=== PATIENT | female | born 1930 ===

== ENCOUNTER → 2017-06-24 | Outpatient (CLI) | payer MEDICARE, OTHER | END | disposition home or self-care (01) | LOC: MAMMO 14:46 | DX: Z12.31 Encounter for screening mammogram for malignant neoplasm of breast (principal); N60.01 Solitary cyst of right breast | CPT/HCPCS: 77067 ==

== ENCOUNTER 2018-01-19 11:29 | Inpatient (IN) | payer MEDICARE, OTHER ==
[~2018-01-19] VITALS: Ht 177.8 cm; Wt 90.7 kg
[2018-01-19 12:31] LABS: BASO # 0.1 x10^3/uL (0.0-0.2); BASO % 1 % (0-3); EOS # 0.6 x10^3/uL (0.0-0.7); EOS % 4 % (0-3); HEMATOCRIT 35.6 % (36.0-47.0); LYMPH # 2.1 x10^3/uL (1.0-4.8); LYMPH % 15 % (24-48); MEAN CORPUSCULAR HEMOGLOBIN 30 pg (25-35); MEAN CORPUSCULAR HGB CONC 34 g/dL (31-37); MEAN CORPUSCULAR VOLUME 88 fL (79-100); MONO % 7 % (0-9); NEUT # 10.7 x10^3uL (1.8-7.7); NEUT % 74 % (31-73); PLATELET COUNT 327 x10^3/uL (140-400); RED BLOOD COUNT 4.06 x10^6/uL (3.50-5.40); RED CELL DISTRIBUTION WIDTH 14.4 % (11.5-14.5); WHITE BLOOD COUNT 14.5 x10^3/uL (4.0-11.0)
[2018-01-19 12:32] LABS: BILIRUBIN,URINE NEGATIVE (NEG); CLARITY,URINE CLEAR; COLOR,URINE YELLOW; NITRITE,URINE NEGATIVE (NEG); PROTEIN,URINE NEGATIVE (NEG-TRACE); UROBILINOGEN,URINE 0.2 mg/dL (0.2 mg/dL)
[2018-01-19 12:41] LABS: CALCIUM 8.7 mg/dL (8.5-10.1); GFR 52.2; POTASSIUM 4.4 mmol/L (3.5-5.1)
[2018-01-19 12:42] LABS: BACTERIA,URINE FEW /HPF (0-FEW); RBC,URINE OCC /HPF (0-2); SQUAMOUS EPITHELIAL CELL,UR FEW /LPF
[2018-01-19 12:48] LABS: ALBUMIN 2.5 g/dL (3.4-5.0); ALBUMIN/GLOBULIN RATIO 0.6 (1.0-1.7); MAGNESIUM 1.7 mg/dL (1.8-2.4); PROTHROMBIN TIME PATIENT 12.7 SEC (11.7-14.0); TOTAL BILIRUBIN 0.3 mg/dL (0.2-1.0); TOTAL PROTEIN 6.6 g/dL (6.4-8.2)
[2018-01-19] MEDS ORDERED: MAGNESIUM SULFATE 2GM 50 ML IV ONE (13:30)
--- NOTE | 2018-01-19 13:31 | RAD ---
CT of the head without contrast, 01/19/2018: HISTORY: Slurred speech, altered mental status There is moderate cerebral atrophy. There are moderate patchy bilateral deep white matter lucencies compatible with chronic ischemic change. The ventricles are enlarged on a compensatory basis. There is no shift of the midline structures. There is no evidence of acute intracranial hemorrhage or mass effect. Bilateral basal ganglia calcifications are present. A small lucency along the lateral aspect of the left basal ganglia is compatible with an old infarct. There is moderate calcific plaquing of the distal internal carotid and vertebral arteries. IMPRESSION: 1. Chronic findings as described above. 2. No acute intracranial abnormality is detected. Electronically signed by: Tao Cuevas MD (01/19/2018 1:28 PM) [facility]
--- NOTE | 2018-01-19 13:41 | PHYS DOC ---
Past Medical History Past Medical History: Diabetes-Type II Past Surgical History: Hip Replacement, Other Additional Past Surgical Histo: HERNIA, LEFT HIP Alcohol Use: None Drug Use: None Adult General Chief Complaint Chief Complaint: SLURRED SPEECH HPI HPI Patient is a 87 year old female was brought here by EMS for evaluation of slurred speech, had trouble finding the right words to say that been going on for more than a week. Patient's family said they have trouble understanding what she was trying to say. Patient denies any headache, no cough, no fever, no chest pain, no abdominal pain. Patient had been constipated, the [place] [facility] staff had given her some laxative recently, today she started having large bowel movement. Patient can move all her extremity without a problem. She had no problem was speaking, no blurry vision. She is DNR, she is living at the [place] [facility]. Review of Systems Review of Systems Constitutional: Denies fever or chills [] Eyes: Denies change in visual acuity, redness, or eye pain [] HENT: Denies nasal congestion or sore throat [] Respiratory: Denies cough or shortness of breath [] Cardiovascular: No additional information not addressed in HPI [] GI: Denies abdominal pain, nausea, vomiting, bloody stools or diarrhea [] : Denies dysuria or hematuria [] Musculoskeletal: Denies back pain or joint pain [] Integument: Denies rash or skin lesions [] Neurologic: Denies headache, focal weakness or sensory changes . POSITIVE FOR SLURRED SPEECH, APHASIA. Endocrine: Denies polyuria or polydipsia [] All other systems were reviewed and found to be within normal limits, except as documented in this note. Current Medications Current Medications Current Medications Medications (Trade) Dose Ordered Sig/Johnny Start Time Stop Time Status Last Admin Dose Admin Magnesium Sulfate 50 ml @ 25 mls/hr 1X ONCE 01/19/18 13:30 01/19/18 15:29 DC 01/19/18 14:20 25 MLS/HR Ondansetron HCl (Zofran) 4 mg PRN Q8HRS PRN 01/19/18 15:00 01/20/18 14:59 Sodium Chloride 1,000 ml @ 100 mls/hr Q10H 01/19/18 14:54 01/20/18 14:53 Allergies Allergies Allergies Coded Allergies Type Severity Reaction Last Updated Verified Penicillins Allergy Intermediate HIVES 01/19/18 Yes Physical Exam Physical Exam Constitutional: Well developed, well nourished, no acute distress, non-toxic appearance. [] HENT: Normocephalic, atraumatic, bilateral external ears normal, oropharynx moist, no oral exudates, nose normal. [] Eyes: PERRLA, EOMI, conjunctiva normal, no discharge. [] Neck: Normal range of motion, no tenderness, supple, no stridor. [] Cardiovascular:Heart rate regular rhythm, no murmur [] Lungs & Thorax: Bilateral breath sounds clear to auscultation [] Abdomen: Bowel sounds normal, soft, no tenderness, no masses, no pulsatile masses. [] Skin: Warm, dry, rash on buttock area. Back: No tenderness, no CVA tenderness. [] Extremities: No tenderness, no cyanosis, no clubbing, ROM intact, no edema. [] Neurologic: Alert and oriented X 3, normal motor function, normal sensory function, no focal deficits noted. Patient has obvious expressive aphasia with mild slurred speech. Psychologic: Affect normal, judgement normal, mood normal. [] Current Patient Data Vital Signs Vital Signs Date Time Temp Pulse Resp B/P (MAP) Pulse Ox O2 Delivery O2 Flow Rate FiO2 01/19/18 14:30 80 22 132/63 (86) 94 Room Air 01/19/18 11:40 97.6 97.6 Lab Values Laboratory Tests Test 01/19/18 12:00 01/19/18 12:15 White Blood Count 14.5 x10^3/uL (4.0-11.0) H Red Blood Count 4.06 x10^6/uL (3.50-5.40) Hemoglobin 12.0 g/dL (12.0-15.5) Hematocrit 35.6 % (36.0-47.0) L Mean Corpuscular Volume 88 fL (79-100) Mean Corpuscular Hemoglobin 30 pg (25-35) Mean Corpuscular Hemoglobin Concent 34 g/dL (31-37) Red Cell Distribution Width 14.4 % (11.5-14.5) Platelet Count 327 x10^3/uL (140-400) Neutrophils (%) (Auto) 74 % (31-73) H Lymphocytes (%) (Auto) 15 % (24-48) L Monocytes (%) (Auto) 7 % (0-9) Eosinophils (%) (Auto) 4 % (0-3) H Basophils (%) (Auto) 1 % (0-3) Neutrophils # (Auto) 10.7 x10^3uL (1.8-7.7) H Lymphocytes # (Auto) 2.1 x10^3/uL (1.0-4.8) Monocytes # (Auto) 1.0 x10^3/uL (0.0-1.1) Eosinophils # (Auto) 0.6 x10^3/uL (0.0-0.7) Basophils # (Auto) 0.1 x10^3/uL (0.0-0.2) Prothrombin Time 12.7 SEC (11.7-14.0) Prothrombin Time INR 1.0 (0.8-1.1) PTT 26 SEC (24-38) Sodium Level 130 mmol/L (136-145) L Potassium Level 4.4 mmol/L (3.5-5.1) Chloride Level 93 mmol/L (98-107) L Carbon Dioxide Level 32 mmol/L (21-32) Anion Gap 5 (6-14) L Blood Urea Nitrogen 20 mg/dL (7-20) Creatinine 1.0 mg/dL (0.6-1.0) Estimated GFR (Cockcroft-Gault) 52.2 BUN/Creatinine Ratio 20 (6-20) Glucose Level 193 mg/dL (70-99) H Calcium Level 8.7 mg/dL (8.5-10.1) Magnesium Level 1.7 mg/dL (1.8-2.4) L Total Bilirubin 0.3 mg/dL (0.2-1.0) Aspartate Amino Transferase (AST) 17 U/L (15-37) Alanine Aminotransferase (ALT) 22 U/L (14-59) Alkaline Phosphatase 64 U/L (46-116) Troponin I Quantitative < 0.017 ng/mL (0.000-0.055) XZ-Qtf-M-Type Natriuretic Peptide 356 pg/mL (0-449) Total Protein 6.6 g/dL (6.4-8.2) Albumin 2.5 g/dL (3.4-5.0) L Albumin/Globulin Ratio 0.6 (1.0-1.7) L Urine Collection Type Unknown Urine Color Yellow Urine Clarity Clear Urine pH 7.0 Urine Specific [place] 1.015 Urine Protein Negative mg/dL (NEG-TRACE) Urine Glucose (UA) Negative mg/dL (NEG) Urine Ketones (Stick) Negative mg/dL (NEG) Urine Blood Negative (NEG) Urine Nitrite Negative (NEG) Urine Bilirubin Negative (NEG) Urine Urobilinogen Dipstick 0.2 mg/dL (0.2 mg/dL) Urine Leukocyte Esterase Negative (NEG) Urine RBC Occ /HPF (0-2) Urine WBC 1-4 /HPF (0-4) Urine Squamous Epithelial Cells Few /LPF Urine Bacteria Few /HPF (0-FEW) Laboratory Tests 01/19/18 12:00 Laboratory Tests 01/19/18 12:00 EKG EKG EKG AT 1421, RATE OF 82 BPM, NO STEMI, SINUS RHYTHM[] Radiology/Procedures Radiology/Procedures [][facility] [address] [place] [address] IMAGING REPORT Signed PATIENT: YARY CALDWELL ACCOUNT: [id number] : 1930 LOCATION: ER AGE: 87 SEX: F EXAM STATUS: REG ER ORD. PHYSICIAN: DEON BRWON DO REASON: AMS, SLURRED SPEECH FOR A WEEK PROCEDURE: CT HEAD WO CONTRAST CT of the head without contrast, 01/19/2018: HISTORY: Slurred speech, altered mental status There is moderate cerebral atrophy. There are moderate patchy bilateral deep white matter lucencies compatible with chronic ischemic change. The ventricles are enlarged on a compensatory basis. There is no shift of the midline structures. There is no evidence of acute intracranial hemorrhage or mass effect. Bilateral basal ganglia calcifications are present. A small lucency along the lateral aspect of the left basal ganglia is compatible with an old infarct. There is moderate calcific plaquing of the distal internal carotid and vertebral arteries. IMPRESSION: 1. Chronic findings as described above. 2. No acute intracranial abnormality is detected. Electronically signed by: Tao Cuevas MD (01/19/2018 1:28 PM) [facility] DICTATED and SIGNED BY: TAO CUEVAS MD DATE: 01/19/18 132 Impressions: EXPRESSIVE APHASIA, CONFUSION. Course & Med Decision Making Course & Med Decision Making Pertinent Labs and Imaging studies reviewed. (See chart for details) Discussed case with Dr. Ca, Neurologist, recommended to admit patient for MRI of her brain to rule out Stroke. Dragon Disclaimer Dragon Disclaimer This electronic medical record was generated, in whole or in part, using a voice recognition dictation system. Departure Departure Impression: Primary Impression: Expressive aphasia Disposition: ADMITTED INPATIENT Admitting Physician: Calli Jarvis Condition: STABLE Referrals: CALLI JARVIS MD (PCP) DEON BROWN DO Jan 19, 2018 13:41
--- NOTE | 2018-01-19 14:29 | EKG ---
[facility] [address] [place] [address] Test Date: 2018-01-19 Test Time: 14:18:12 Pat Name: YARY CALDWELL Department: Room: Gender: F [employer] Activities Director: : 1930 Requested By: DEON BROWN Order Number: [id number] Reading MD: Shivam Limon Measurements Intervals [place] Rate: 81 P: 36 SD: 202 QRS: -27 QRSD: 78 T: 13 QT: 372 QTc: 437 Interpretive Statements SINUS RHYTHM ATRIAL PREMATURE COMPLEX(ES) LEFTWARD AXIS CONSIDER LEFT VENTRICULAR HYPERTROPHY NON SPECIFIC T ABNORMALITY Electronically Signed On 01-19-2018 16:33:58 CDT by Shivam Limon
[2018-01-19] MEDS ORDERED: ONDANSETRON PF 4 MG/2 ML VIAL. IV PRN (15:00)
[2018-01-19] MEDS ORDERED: CITA10TA8 PO (16:07)
[2018-01-19] MEDS ORDERED: INSU100V13 SQ (16:07)
[2018-01-19] MEDS ORDERED: LISI-376 PO (16:07)
[2018-01-19] MEDS ORDERED: CARV6.252 PO (16:07)
[2018-01-19] MEDS ORDERED: FLUT9.9S NS (16:07)
[2018-01-19] MEDS ORDERED: MONT10TA6 PO (16:07)
[2018-01-19] MEDS ORDERED: INSU100C4 SQ (16:07)
[2018-01-19] MEDS ORDERED: CETI10TA16 PO (16:08)
[2018-01-19] MEDS ORDERED: SIMV10TA3 PO (16:10)
[2018-01-19] MEDS ORDERED: ASPI-630 PO (16:11)
[2018-01-19] MEDS ORDERED: MULT1TAB52 PO (16:12)
[2018-01-19] MEDS ORDERED: CINN500C2 PO (16:13)
[2018-01-19] MEDS ORDERED: FLAX10003 PO (16:14)
[2018-01-19] MEDS ORDERED: DICL100G18 TP (16:16)
[2018-01-19] MEDS ORDERED: B2/V1TAB PO (16:17)
--- NOTE | 2018-01-19 16:17 | RAD ---
EXAMINATION: Magnetic resonance imaging (MRI) of the brain and brainstem without contrast 01/19/2018 2:54 PM HISTORY: Expressive aphasia for one week. Confusion. TECHNIQUE: Multiplanar multi-weighted MRI of the brain and brainstem was performed without intravenous contrast using the general brain protocol. COMPARISON: CT head 01/19/2018 FINDINGS: The scalp and calvarium are normal. The superior sagittal sinus demonstrates normal venous flow. The corpus callosum is normal in shape and signal intensity. Mild cerebellar atrophy. There is a partially empty sella turcica, likely normal variant in the absence of elevated intracranial pressure. The brainstem and craniocervical junction are unremarkable. Diffusion weighted images reveal no hyperintensities to suggest acute cerebral infarction. The susceptibility weighted sequences reveal no evidence of acute or chronic hemorrhage. Ventricles, sulci and basal cisterns are prominent compatible with moderate to advanced generalized cerebral line loss. Confluent T2/FLAIR signal hyperintensity is identified in the periventricular subcortical white matter compatible with advanced chronic small vessel ischemic changes. There is a remote lacunar infarct in the right basal ganglia. Artifact is noted in the region of the right maxillary sinus. The visualized portions of the mastoids are unremarkable. The orbits appear normal the exception of bilateral lens replacement. Normal flow voids are demonstrated in the carotid arteries and basilar artery. IMPRESSION: 1. No evidence for acute or subacute ischemia. 2. Moderate to advanced generalized cerebral volume loss with advanced chronic small vessel ischemic changes in the roscoe, periventricular and subcortical white matter. 3. Mild cerebellar atrophy. 4. Remote lacunar infarcts are noted in the right basal ganglia. Electronically signed by: Ivon Vernon MD (01/19/2018 4:14 PM) [id number]
[2018-01-19] MEDS ORDERED: CHLO15MO2 PO (16:19)
[2018-01-19] MEDS ORDERED: TOLT4CAP PO (16:21)
[2018-01-19] MEDS ORDERED: ACET325T9 PO (16:27)
[2018-01-19] MEDS: IV NORMAL SALINE 1000ML BAG 1,000 ML IV SCH (18:21)
[2018-01-19 19:33] VITALS: BP 180/79
[2018-01-19 23:12] VITALS: BP 155/75
[2018-01-20] MEDS: IV NORMAL SALINE 1000ML BAG 1,000 ML IV SCH ×2 (00:54→10:54)
[2018-01-20 02:57] VITALS: BP 157/89
[2018-01-20 07:00] VITALS: BP 130/62
[2018-01-20 11:00] VITALS: BP 131/51
[2018-01-20 15:00] VITALS: BP 139/61
--- NOTE | 2018-01-20 16:43 | PDOC2 ---
NEUROLOGY CONSULT Date of Admission Date of Admission DATE: 01/20/18 TIME: 16:31 Reason for Consult Reason for Consult: IMPRESSION: Slurred speech and word finding difficulties for 1 week. Metabolic encephalopathy. Hyperglycemia. DM Generalized weakness. Cerebral volume loss. 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 Over weight. No evidence of acute CVA this time. RECOMMENDATIONS/PLAN: Brain MRI performed and no evidence of CVA this time. EEG Lab: see orders. Treat medical diseases. Control hyperglycemia. OT/PT. HISTORY OF THE PRESENT ILLNESS: This 87 -year-old female patient care home resident was brought by EMS to the ER of [facility] for evaluation of slurred speech, had trouble finding the right words to say that been going on for more than a week. Patient's family said they have trouble understanding what she was trying to say. Patient denies any headache, no cough, no fever, no chest pain, no abdominal pain. Patient can move all her extremities. She is DNR. PAST MEDICAL HISTORY: Please see above. PAST SURGERY HISTORY: Hip Replacement, HERNIA, LEFT HIP ALLERGY: Reviewed. MEDICATIONS: Refer to [facility] FAMILY HISTORY: H Non contributory. SOCIAL HISTORY: Lives in care home. Denies smoking, drinking, and illicit drug use. REVIEW OF SYSTEMS: Constitutional: No malnutrition, weight loss, cachexia. Head: No traumatic brain or head injury. Skin: No edema, or rash. Ear: No infection. Eyes: No vision loss or color blindness. Nose: No bleeding or purulent discharges. Hearing: Hearing decrease. Neck: No injury. Breast: No history of cancer, masses,or discharges. Cardiac: No SD, arrhythmia. Pulmonary: No COPD. GI: No GI ulcer, GI bleeding. Urinary/genital: UTI. Endocrinologic: Diabetes Mellitus. Skeletomuscular: Generalized weakness. Neurological: see HP. Psychiatric: Denies drug use/abuse. Otherwise, not -bidwu review of systems. PHYSICAL EXAMINATION: General appearance is in no acute distress. HEENT: Normocephalic and nontraumatic. Eyes, nose, ears, and throat are unremarkable. Neck is supple. No lymphadenopathy. No crepitus. Cardiovascular: S1, S2, regular rate and rhythm. Pulmonary: Clear to auscultation bilaterally. Abdomen: Bowel sounds are positive. Abdomen is soft, nontender, and nondistended. Extremities: No rash, lesions, or edema. No restriction of range of motion NEUROLOGICAL EXAMINATION: Awake. Not oriented to time, but knew place and person. PERRL. EOMI. CN: no focal findings. Muscle tone: within normal. Muscle strength: 4+ DTR: 1-2 Plantar reflex: Neutral response bilaterally Gait: not examined in bed. Sensory exam: no abnormal findings. No cerebellar signs elicited. F-T-N test fine. Current Medications Current Medications Current Medications Magnesium Sulfate 50 ml @ 25 mls/hr 1X ONCE IV Last administered on 01/19/18at 14:20; Start 01/19/18 at 13:30; Stop 01/19/18 at 15:29; Status DC Ondansetron HCl (Zofran) 4 mg PRN Q8HRS PRN IV NAUSEA/VOMITING; Start 01/19/18 at 15:00; Stop 01/20/18 at 14:59; Status DC Sodium Chloride 1,000 ml @ 100 mls/hr Q10H IV Last administered on 01/19/18at 18:21; Start 01/19/18 at 14:54; Stop 01/20/18 at 14:53; Status DC Active Scripts Active Reported Tylenol (Acetaminophen) 325 Mg Tablet 2 Tab PO PRN Q4HRS Detrol La (Tolterodine Tartrate) 4 Mg Cap.er.24h 1 Cap PO DAILY Peridex (Chlorhexidine Gluconate) 15 Ml Mouthwash 30 Ml PO BID Icaps Tablet (B2/Vit A,C & E/Lut/Zeaxanth/Mn) 1 Each Tablet.er 1 Each PO Voltaren (Diclofenac Sodium) 100 Gm Gel..gram. 2 Gm TP QID Flax Oil (Flaxseed Oil) 1,000 Mg Capsule 1,000 Mg PO Cinnamon (Cinnamon Bark) 500 Mg Capsule 500 Mg PO Multivitamins (Multivitamin) 1 Each Tablet 1 Tab PO DAILY Aspirin 81 Mg Tab.chew 1 Tab PO DAILY Simvastatin 10 Mg Tablet 1 Tab PO QHS Cetirizine Hcl 10 Mg Tablet 1 Tab PO DAILY Novolog (Insulin Aspart) 100 Unit/1 Ml Cartridge Unknown Dose SQ SLIDING SCALE Flonase Allergy Relief (Fluticasone Propionate) 9.9 Ml Orange.susp 2 Sprays NS DAILY Singulair Tablet (Montelukast Sodium) 10 Mg Tablet 1 Tab PO DAILY Zestril (Lisinopril) 5 Mg Tablet 2 Tab PO DAILY Celexa (Citalopram Hydrobromide) 10 Mg Tablet 3 Tab PO DAILY Levemir (Insulin Detemir) 100 Unit/1 Ml Vial 22 Unit SQ HS Carvedilol 6.25 Mg Tablet 6.25 Mg PO BIDWMEALS Allergies Allergies: Allergies Coded Allergies Type Severity Reaction Last Updated Verified Penicillins Allergy Intermediate HIVES 01/19/18 Yes ROS Review of System The patient denies any associated fevers, chills, headache, ear pain, rhinorrhea , sore throat, stiff neck, productive cough, chest pain, shortness of breath, back or flank pain, abdominal pain, nausea, vomiting, diarrhea, constipation, dysuria, rash, numbness, weakness, tingling, incontinence, difficulty ambulating, or diaphoresis. Physical Exam Physical Exam General: Well developed, well nourished, no acute distress, well appearing HEENT: Pupils equally round and reactive to light, EOMI, no discharge, normal conjunctiva Neck: Supple, no nuchal rigidity, no JVD, trachea midline, no tenderness Cardiac: RRR, no murmurs, no gallops, no rubs Chest/Lungs: CTAB, no wheeze, no rhonchi, no crackles Abdomen: soft, non-distended, no guarding, no peritoneal signs, non-tender Back: No tenderness Extremities: no edema, pulses intact, non-tender,capillary refill <3 sec bilateral upper and lower extremities, Neuro: Alert and oriented x 4, no focal deficits, normal speech Vitals Vitals: Vital Signs Date Time Temp Pulse Resp B/P (MAP) Pulse Ox O2 Delivery O2 Flow Rate FiO2 01/20/18 15:00 98.1 81 16 139/61 (87) 97 Room Air 98.1 Labs Labs Laboratory Tests Test 01/19/18 12:00 01/19/18 12:15 01/19/18 21:24 01/20/18 11:10 White Blood Count 14.5 x10^3/uL (4.0-11.0) Red Blood Count 4.06 x10^6/uL (3.50-5.40) Hemoglobin 12.0 g/dL (12.0-15.5) Hematocrit 35.6 % (36.0-47.0) Mean Corpuscular Volume 88 fL (79-100) Mean Corpuscular Hemoglobin 30 pg (25-35) Mean Corpuscular Hemoglobin Concent 34 g/dL (31-37) Red Cell Distribution Width 14.4 % (11.5-14.5) Platelet Count 327 x10^3/uL (140-400) Neutrophils (%) (Auto) 74 % (31-73) Lymphocytes (%) (Auto) 15 % (24-48) Monocytes (%) (Auto) 7 % (0-9) Eosinophils (%) (Auto) 4 % (0-3) Basophils (%) (Auto) 1 % (0-3) Neutrophils # (Auto) 10.7 x10^3uL (1.8-7.7) Lymphocytes # (Auto) 2.1 x10^3/uL (1.0-4.8) Monocytes # (Auto) 1.0 x10^3/uL (0.0-1.1) Eosinophils # (Auto) 0.6 x10^3/uL (0.0-0.7) Basophils # (Auto) 0.1 x10^3/uL (0.0-0.2) Prothrombin Time 12.7 SEC (11.7-14.0) Prothromb Time International Ratio 1.0 (0.8-1.1) Activated Partial Thromboplast Time 26 SEC (24-38) Sodium Level 130 mmol/L (136-145) Potassium Level 4.4 mmol/L (3.5-5.1) Chloride Level 93 mmol/L (98-107) Carbon Dioxide Level 32 mmol/L (21-32) Anion Gap 5 (6-14) Blood Urea Nitrogen 20 mg/dL (7-20) Creatinine 1.0 mg/dL (0.6-1.0) Estimated GFR (Cockcroft-Gault) 52.2 BUN/Creatinine Ratio 20 (6-20) Glucose Level 193 mg/dL (70-99) Calcium Level 8.7 mg/dL (8.5-10.1) Magnesium Level 1.7 mg/dL (1.8-2.4) Total Bilirubin 0.3 mg/dL (0.2-1.0) Aspartate Amino Transf (AST/SGOT) 17 U/L (15-37) Alanine Aminotransferase (ALT/SGPT) 22 U/L (14-59) Alkaline Phosphatase 64 U/L (46-116) Troponin I Quantitative < 0.017 ng/mL (0.000-0.055) UH-Yzw-U-Type Natriuretic Peptide 356 pg/mL (0-449) Total Protein 6.6 g/dL (6.4-8.2) Albumin 2.5 g/dL (3.4-5.0) Albumin/Globulin Ratio 0.6 (1.0-1.7) Urine Collection Type Unknown Urine Color Yellow Urine Clarity Clear Urine pH 7.0 Urine Specific [place] 1.015 Urine Protein Negative mg/dL (NEG-TRACE) Urine Glucose (UA) Negative mg/dL (NEG) Urine Ketones (Stick) Negative mg/dL (NEG) Urine Blood Negative (NEG) Urine Nitrite Negative (NEG) Urine Bilirubin Negative (NEG) Urine Urobilinogen Dipstick 0.2 mg/dL (0.2 mg/dL) Urine Leukocyte Esterase Negative (NEG) Urine RBC Occ /HPF (0-2) Urine WBC 1-4 /HPF (0-4) Urine Squamous Epithelial Cells Few /LPF Urine Bacteria Few /HPF (0-FEW) Glucose (Fingerstick) 139 mg/dL (70-99) Vitamin B12 Level 449 pg/mL (247-911) Thyroid Stimulating Hormone (TSH) 1.431 uIU/mL (0.358-3.74) Laboratory Tests Test 01/19/18 21:24 01/20/18 11:10 Glucose (Fingerstick) 139 mg/dL (70-99) Vitamin B12 Level 449 pg/mL (247-911) Thyroid Stimulating Hormone (TSH) 1.431 uIU/mL (0.358-3.74) VERONICA LEAL MD Jan 20, 2018 16:43
--- NOTE | 2018-01-20 18:09 | HP ---
ADMIT DATE: 01/19/2018 CHIEF COMPLAINT AND HISTORY OF PRESENT ILLNESS: This is an 87-year-old white female who is well known to me from followup at [facility]. The patient sent to the Emergency Room on the day of admission with slurred speech and word finding difficulties along with some increased confusion over the several days prior to admission. Family had noted the same with difficulties understanding them per history. The patient denied any major complaints on complete review of systems. PAST MEDICAL HISTORY: Remarkable for longstanding type 2 diabetes. PAST SURGICAL HISTORY: She has had a prior hernia repair as well as left hip replacement. MEDICATIONS: Brought with the patient, listed on the computer and have been addressed. ALLERGIES: SHE IS ALLERGIC TO PENICILLIN. SOCIAL HISTORY: She is , nonsmoker, nondrinker, does not use drugs. FAMILY HISTORY: Noncontributory. REVIEW OF SYSTEMS: Again, 12-point review of systems is essentially unremarkable. She does, however, realized that her speech at times is somewhat slurred and admits that that has been the case. PHYSICAL EXAMINATION: GENERAL: She is well-developed, well-nourished white female, in no acute distress. VITAL SIGNS: Stable. She is afebrile. HEAD, EYES, EARS, NOSE AND THROAT: Remarkable for glasses. NECK: Supple, without any thyromegaly. CHEST: Clear to auscultation and percussion. HEART: Regular rate and rhythm without S3, S4, or murmur. ABDOMEN: Soft, nontender, without hepatosplenomegaly or masses. EXTREMITIES: Without cyanosis, clubbing, edema. NEUROLOGIC: Nonfocal, although a couple of times in my interview, I would notice her having trouble finding her words, which is out of character for her. LABORATORY DATA: Initial CT of the head is unremarkable. Initial labs are noncontributory including urine, CBC and chem panel, although she did have an elevated white count of 14,500. IMPRESSION: 1. Speech difficulty suspicious for transient ischemic attack versus cerebrovascular accident type symptoms. 2. Diabetes. PLAN: The patient has been admitted. Neurology has been consulted. The patient will be monitored, managed and treated appropriately. CALLI AGUILAR MD DR: KEM/victor hugo JOB#: [id number] / [id number]
[2018-01-20 19:42] VITALS: BP 154/72
[2018-01-20 23:32] VITALS: BP 148/65
[2018-01-21] VITALS (8 sets, daily range): BP systolic 123–166; BP diastolic 45–81
[2018-01-21 11:31] LABS: CREATININE 0.9 mg/dL (0.6-1.0); MAGNESIUM 1.5 mg/dL (1.8-2.4)
--- NOTE | 2018-01-21 11:32 | PDOC2 ---
CONNIE GARCIA BAG END SEWER 01/21/18 1132: CARDIAC CONSULT DATE OF CONSULT Date of Consult DATE: 01/21/18 TIME: 11:17 REASON FOR CONSULT Reason for Consult: PAT REFERRING PHYSICIAN Referring Physician: Matheus SOURCE Source: Chart review, Patient HISTORY OF PRESENT ILLNESS HISTORY OF PRESENT ILLNESS This is an 87 yo female admitted for complains of word finding and slurred speech. She has been evaluated by neurology and presently not significant for any acute CVA per imaging. She has been having arrhythmia but has been noted with burst of PSVT prompting this consult. .Denies any CP, SOA and slurred speech is now absent. It is not clear if her BG was checked or what her BG was when she was having her symptoms. Denies any recent falls, no past seizures but she did have CVA in 2004. No known hx of CAD, arrhythmias. Denies any episodes of palpitations, recent syncope. Presently denies any pain, and has good recall with the events that has happened. She only uses walker to transfer otherwise she is WC bound. PAST MEDICAL HISTORY Cardiovascular: HTN, Hyperlipidemia CENTRAL NERVOUS SYSTEM: CVA GI: Constipation Psych: Anxiety Musculoskeletal: Osteoarthritis Infectious disease: No pertinent hx ENT: Allergic Rhinitis Renal/: Urinary Incontinence Endocrine: Diabetes (II with insulin therapy) Dermatology: Other (seborrheic dermatitis) PAST SURGICAL HISTORY Past Surgical History: Cataract Removal, Hernia Repair (stomach), Total hip replacement (left) FAMILY HISTORY Family History noncontributory to CV SOCIAL HISTORY Smoke: No ALCOHOL: none Lives: Correction ALLERGIES ALLERGIES: Coded Allergies: Penicillins (Verified Allergy, Intermediate, HIVES, 01/19/18) ROS Review of System 14 point ROS evaluated with pertinent positives noted per HPI PHYSICAL EXAM General: Alert, Oriented X3, Cooperative, No acute distress HEENT: Atraumatic, Mucous membr. moist/pink Lungs: Normal air movement, Other (basilar crackles) Heart: Regular rate (SR with PACs), Normal S1, Normal S2, Other (2/6 systolic murmur to LLS border) Abdomen: Soft, No tenderness Extremities: No cyanosis, No edema Skin: No breakdown, No significant lesion Neuro: Normal speech, Sensation intact Psych/Mental Status: Mental status NL, Mood NL MUSCULOSKELETAL: Osteoarthritic changes both hands VITALS VITALS Vital Signs Date Time Temp Pulse Resp B/P (MAP) Pulse Ox O2 Delivery O2 Flow Rate FiO2 01/21/18 07:34 97.9 78 20 149/69 (95) 96 Room Air 97.9 LABS Lab: Laboratory Tests Test 01/20/18 17:30 01/21/18 07:17 Glucose (Fingerstick) 154 mg/dL (70-99) 153 mg/dL (70-99) ASSESSMENT/PLAN ASSESSMENT/PLAN 1. Arrhythmia: Appears to be MAT/WAP with occasional PVCs in the setting of abn lytes. 2. Metabolic encephalopathy: with noted hyponatremia. unclear for associated hypoglycemia given her insulin therapy. 3. DM2: per PCP 4. HLP 5. HTN: controlled 6. Deconditioning: mainly WC bound. No frequent falls. 7. Hx of CVA: reported in 2004. 8. BPPV Recommendations 1. Replace Mg. Restart home coreg. DC lisinopril. NS was received. TTE today. 2. Check orthostatic readings. PCXR 3. Restart home statin and start on ECASA 81 mg MAHESH JETER MD 01/21/18 1336: CARDIAC CONSULT ASSESSMENT/PLAN ASSESSMENT/PLAN Pt. seen and examined. Agree with above GIRLS TENNIS COACH note. Supportive care from CV standpoint. Consider outpt event monitor. CONNIE GARCIA APRN Jan 21, 2018 11:32 MAHESH JETER MD Jan 21, 2018 13:36
--- NOTE | 2018-01-21 11:50 | EEG ---
DATE OF SERVICE: 01/21/2018 EEG NUMBER: [id number] OBJECTIVE: This is an 87-year-old female patient with history of mental status changes with prolonged mental status changes. EEG was requested to evaluate cerebral activity. METHODS: Twenty electrodes were applied according to the international 10-20 electrode placement system. EKG monitoring, hyperventilation, intermittent photic stimulation, monopolar and bipolar montages are routinely utilized. The record was obtained on a digital system with video monitoring. FINDINGS: 1. Background: The patient was recorded in the awake, drowsy, and sleep states. The overall background amplitude is 10-30 microvolts. A posterior dominant rhythm of 7-8 Hz is observed, but most time is in 8 Hz range. 2. Abnormalities: No specific epileptiform discharge or electrographic seizure is seen. No focal or diffuse slowing. 3. Activation: Hyperventilation was performed with fair efforts and normal response. Intermittent photic stimulation was performed with photic driving. IMPRESSION: This EEG is a borderline study for the awake, drowsy, and sleep states. No focal, lateralizing, specific epileptiform discharge or electrographic seizure is seen. VERONICA LEAL MD DR: EDMUND/victor hugo JOB#: [id number] / [id number] NOELLE
[2018-01-21 11:59] LABS: CHOLESTEROL/HDL RATIO 3.5
[2018-01-21] MEDS ORDERED: MAGNESIUM SULFATE 2GM 50 ML IV ONE (13:00)
--- NOTE | 2018-01-21 13:20 | RAD ---
EXAM: Chest, single view. HISTORY: Leukocytosis. COMPARISON: None. FINDINGS: A frontal view of the chest is obtained. There is suspected chronic diffuse increased interstitial opacity. There is no consolidation, pleural effusion or pneumothorax. The heart is normal in size. IMPRESSION: No acute pulmonary finding. Electronically signed by: Shiela Perez MD (01/21/2018 1:17 PM) [facility]
--- NOTE | 2018-01-21 13:58 | PN ---
DATE: 01/21/2018 LOCATION: Room 654. SUBJECTIVE: The patient is awake, alert, getting ready to eat breakfast, still is having some word-finding difficulty throughout the day yesterday. OBJECTIVE: VITAL SIGNS: Stable. She is afebrile. CHEST: Clear. HEART: Regular. ABDOMEN: Benign. LABORATORY DATA: Sugars have been good. B12 and TSH are normal. CT of the head and MRI did not show any acute changes. She has an EEG scheduled for today per Neurology. IMPRESSION: Intermittent aphasic speech errors of uncertain etiology at this point in time with Neurology following along. ADDITIONAL DIAGNOSIS: Diabetes. PLAN: Continue present care. We will follow Neurology's lead on further workup and plans to follow. CALLI AGUILAR MD DR: KEM/victor hugo JOB#: [id number] / [id number]
--- NOTE | 2018-01-21 15:58 | CARD ---
MR#: [id number] Date of Study: 01/21/2018 Ordering Physician: CONNIE GARCIA, Referring Physician: CALLI AGUILAR Tech: Joselyn Philippe KEVEN APPROVED REPORT EXAM: Two-dimensional and M-mode echocardiogram with Doppler and color Doppler. Other Information Quality : Good INDICATION Arrhythmia 2D DIMENSIONS RVDd2.5 (2.9-3.5cm)Left Atrium(2D)4.4 (1.6-4.0cm) IVSd1.3 (0.7-1.1cm)Aortic Root(2D)2.3 (2.0-3.7cm) LVDd4.3 (3.9-5.9cm)LVOT Diameter2.2 (1.8-2.4cm) PWd1.4 (0.7-1.1cm)LVDs2.4 (2.5-4.0cm) FS (%) 43.1 %SV60.8 ml LVEF(%)60.0 (>50%) Aortic Valve AoV Peak Kerwin.98.1cm/sAoV VTI19.0cm AO Peak GR.3.8mmHgLVOT VTI 16.70cm AO Mean GR.2mmHgAVA (VTI)3.19cm2 Mitral Valve MV E Qblmcpeo97.2cm/sMV DECEL PIAD182xk MV A Rwrjnimr272.0cm/sE/A Ratio0.6 TDI Lateral E' P. V6.24cm/sMedial E' P. V5.60cm/s E/Lateral E'10.9E/Medial E'12.2 Tricuspid Valve TR P. Twzonlkw175ei/sRAP WMOIWJPE4unUh TR Peak Gr.09rtYgTOLG68pvAn LEFT VENTRICLE The left ventricle is normal size. There is mild concentric left ventricular hypertrophy. The left ve ntricular systolic function is normal. The Ejection Fraction is 55-60%. There is normal LV segmental wall motion. Transmitral Doppler flow pattern is Grade I-abnormal relaxation pattern. RIGHT VENTRICLE The right ventricle is normal size. The right ventricular systolic function is normal. ATRIA The left atrium is mildly dilated. The right atrium size is normal. The interatrial septum is intact with no evidence for an atrial septal defect or patent foramen ovale as noted on 2-D or Doppler imagi ng. AORTIC VALVE The aortic valve is calcified but opens well. Doppler and Color Flow revealed no significant aortic r egurgitation. There is no significant aortic valvular stenosis. MITRAL VALVE The mitral valve is calcified but opens well. There is no evidence of mitral valve prolapse. There is no mitral valve stenosis. Doppler and Color-flow revealed trace to mild mitral regurgitation. TRICUSPID VALVE The tricuspid valve is normal in structure and function. Doppler and Color Flow revealed mild tricusp id regurgitation. There is mild pulmonary hypertension. The PA pressure was estimated at 32 mmHg. The re is no tricuspid valve stenosis. PULMONIC VALVE The pulmonic valve is not well visualized. Doppler and Color Flow revealed no pulmonic valvular regur gitation. There is no pulmonic valvular stenosis. GREAT VESSELS The aortic root is normal in size. The ascending aorta is normal in size. The IVC is normal in size a nd collapses >50% with inspiration. PERICARDIAL EFFUSION There is no evidence of significant pericardial effusion. Critical Notification Critical Value: No <Conclusion> The left ventricular systolic function is normal. The Ejection Fraction is 55-60%. There is normal LV segmental wall motion. Transmitral Doppler flow pattern is Grade I-abnormal relaxation pattern. Trace to mild mitral regurgitation. Mild tricuspid regurgitation. The PA pressure was estimated at 32 mmHg. There is no evidence of significant pericardial effusion. Signed by : Shivam Limon, Electronically Approved : 01/21/2018 15:57:23
[2018-01-21] MEDS ORDERED: CARVEDILOL 6.25 MG TABLET. PO SCH (17:00)
--- NOTE | 2018-01-21 17:34 | PDOC ---
PROGRESS NOTES Assessment Assessment Slurred speech and word finding difficulties for 1 week before admission. Metabolic encephalopathy. Hyperglycemia. DM Generalized weakness. Cerebral volume loss. 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 Over weight. No evidence of acute CVA this time. RECOMMENDATIONS/PLAN: Treat medical diseases. Control hyperglycemia. OT/PT. Brain MRI performed and no evidence of CVA this time. EEG: Borderline study. HISTORY OF THE PRESENT ILLNESS: This 87 -year-old female patient intermediate resident was brought by EMS to the ER of [facility] for evaluation of slurred speech, had trouble finding the right words to say that been going on for more than a week. Patient's family said they have trouble understanding what she was trying to say. Patient denies any headache, no cough, no fever, no chest pain, no abdominal pain. Patient can move all her extremities. She is DNR. PAST MEDICAL HISTORY: Please see above. PAST SURGERY HISTORY: Hip Replacement, HERNIA, LEFT HIP ALLERGY: Reviewed. MEDICATIONS: Refer to [facility] FAMILY HISTORY: H Non contributory. SOCIAL HISTORY: Lives in intermediate. Denies smoking, drinking, and illicit drug use. REVIEW OF SYSTEMS: Constitutional: No malnutrition, weight loss, cachexia. Head: No traumatic brain or head injury. Skin: No edema, or rash. Ear: No infection. Eyes: No vision loss or color blindness. Nose: No bleeding or purulent discharges. Hearing: Hearing decrease. Neck: No injury. Breast: No history of cancer, masses,or discharges. Cardiac: No WI, arrhythmia. Pulmonary: No COPD. GI: No GI ulcer, GI bleeding. Urinary/genital: UTI. Endocrinologic: Diabetes Mellitus. Skeletomuscular: Generalized weakness. Neurological: see HP. Psychiatric: Denies drug use/abuse. Otherwise, not [id number] review of systems. PHYSICAL EXAMINATION: General appearance is in no acute distress. HEENT: Normocephalic and nontraumatic. Eyes, nose, ears, and throat are unremarkable. Neck is supple. No lymphadenopathy. No crepitus. Cardiovascular: S1, S2, regular rate and rhythm. Pulmonary: Clear to auscultation bilaterally. Abdomen: Bowel sounds are positive. Abdomen is soft, nontender, and nondistended. Extremities: No rash, lesions, or edema. No restriction of range of motion Wounds in left back. NEUROLOGICAL EXAMINATION: Awake. Not fully oriented to time, but knew place and person. PERRL. EOMI. CN: no focal findings. Muscle tone: within normal. Muscle strength: 4+ DTR: 1-2 Plantar reflex: Neutral response bilaterally Gait: not examined in bed. Sensory exam: no abnormal findings. No cerebellar signs elicited. F-T-N test fine. Objective Objective Vital Signs Date Time Temp Pulse Resp B/P (MAP) Pulse Ox O2 Delivery O2 Flow Rate FiO2 01/21/18 15:53 80 136/59 (84) 01/21/18 15:43 97.9 20 95 Room Air 97.9 Intake and Output 01/21/18 07:00 Intake Total 720 ml Output Total 1700 ml Balance -980 ml Intake Oral 720 ml Output Urine Total 1700 ml Vitals Signs Vitals VS - Last 72 Hours, by Label Date Time Temp Pulse Resp B/P (MAP) Pulse Ox O2 Delivery O2 Flow Rate FiO2 01/21/18 15:53 80 136/59 (84) 01/21/18 15:52 77 161/68 (99) 01/21/18 15:43 97.9 77 20 127/62 (83) 95 Room Air 97.9 01/21/18 11:25 98.1 75 20 153/78 (103) 94 Room Air 98.1 01/21/18 08:00 Room Air 01/21/18 07:34 97.9 78 20 149/69 (95) 96 Room Air 97.9 01/21/18 03:46 98.1 84 16 166/81 (109) 94 Room Air 98.1 01/20/18 23:32 98.0 82 16 148/65 (92) 96 Room Air 98.0 01/20/18 20:00 Room Air 01/20/18 19:42 97.9 79 16 154/72 (99) 94 Room Air 97.9 01/20/18 15:00 98.1 81 16 139/61 (87) 97 Room Air 98.1 01/20/18 11:00 98.3 76 16 131/51 (77) 97 Room Air 98.3 01/20/18 08:13 Room Air 01/20/18 07:00 98.3 64 18 130/62 (84) 96 Room Air 98.3 Laboratory Laboratory Laboratory Tests Test 01/21/18 07:17 01/21/18 11:00 01/21/18 11:57 01/21/18 16:47 Glucose (Fingerstick) 153 mg/dL (70-99) 189 mg/dL (70-99) 176 mg/dL (70-99) Sodium Level 131 mmol/L (136-145) Potassium Level 4.0 mmol/L (3.5-5.1) Chloride Level 96 mmol/L (98-107) Carbon Dioxide Level 29 mmol/L (21-32) Anion Gap 6 (6-14) Blood Urea Nitrogen 12 mg/dL (7-20) Creatinine 0.9 mg/dL (0.6-1.0) Estimated GFR (Cockcroft-Gault) 59.0 Glucose Level 238 mg/dL (70-99) Calcium Level 8.0 mg/dL (8.5-10.1) Magnesium Level 1.5 mg/dL (1.8-2.4) Triglycerides Level 107 mg/dL (0-150) Cholesterol Level 158 mg/dL (0-200) LDL Cholesterol, Calculated 92 mg/dL (0-100) VLDL Cholesterol, Calculated 21 mg/dL (0-40) Non-HDL Cholesterol Calculated 113 mg/dL (0-129) HDL Cholesterol 45 mg/dL (40-60) Cholesterol/HDL Ratio 3.5 Medication Medications Current Medications Aspirin (Children'S Aspirin) 81 mg DAILYWBKFT PO ; Start 01/22/18 at 08:00 Carvedilol (Coreg) 6.25 mg BIDWMEALS PO ; Start 01/21/18 at 17:00 Carvedilol (Coreg) 6.25 mg BIDWMEALS PO ; Start 01/21/18 at 17:00; Status UNV Magnesium Sulfate 50 ml @ 25 mls/hr 1X ONCE IV Last administered on 01/21/18at 12:17; Start 01/21/18 at 13:00; Stop 01/21/18 at 14:59; Status DC Simvastatin (Zocor) 10 mg QHS PO ; Start 01/21/18 at 21:00 Comment Review of Relevant I have reviewed the following items tera (where applicable) has been applied. VERONICA LEAL MD Jan 21, 2018 17:34
[2018-01-21] MEDS: CARVEDILOL 6.25 MG TABLET. PO SCH (17:45)
[2018-01-21] MEDS: SIMVASTATIN 10 MG TABLET PO SCH (20:36)
[2018-01-22] VITALS (8 sets, daily range): BP systolic 110–141; BP diastolic 39–63
[2018-01-22] MEDS: ASPIRIN CHEWABLE 81 MG TABLET. PO SCH (09:08)
[2018-01-22] MEDS: CARVEDILOL 6.25 MG TABLET. PO SCH (09:08)
--- NOTE | 2018-01-22 10:23 | PN ---
DATE: 01/22/2018 LOCATION: Room 656. SUBJECTIVE: The patient is awake, alert, daughter is in attendance. She feels as well as her daughter that she had a much better day with her speech yesterday with seemingly almost resolution of the symptoms, although still occasional word finding errors. OBJECTIVE: VITAL SIGNS: Stable. She is afebrile. Lipid panel is unremarkable. Sodium yesterday remained somewhat low at 131, but not low enough to suggest this would be the reason for any symptoms. Sugars were decent. EEG per Neurology was borderline yesterday, which I cannot find a report of it to comment any further on it. CHEST: Clear. HEART: Regular. ABDOMEN: Benign. NEUROLOGIC: Nonfocal. Echo was planned by Neurology at this point in time. IMPRESSION: 1. Speech difficulty with word finding errors, probably transient ischemic attack related. 2. Diabetes. PLAN: We will let Neurology finish workup with any suggestions for treatment as an outpatient regarding the transient ischemic attack type symptoms with plans on discharge once this is accomplished. CALLI AGUILAR MD DR: KEM/victor hugo JOB#: [id number] / [id number]
[2018-01-22] MEDS ORDERED: ACETAMINOPHEN 325 MG TABLET. PO PRN (10:45)
[2018-01-22] MEDS: CETIRIZINE HCL 10 MG TABLET. PO SCH (11:30)
[2018-01-22] MEDS ORDERED: LISINOPRIL 10 MG TABLET PO SCH (11:30)
[2018-01-22 11:32] LABS: BASO % 0 % (0-3); EOS # 0.5 x10^3/uL (0.0-0.7); EOS % 5 % (0-3); HEMATOCRIT 36.9 % (36.0-47.0); HEMOGLOBIN 12.5 g/dL (12.0-15.5); LYMPH # 1.9 x10^3/uL (1.0-4.8); LYMPH % 22 % (24-48); MEAN CORPUSCULAR HEMOGLOBIN 30 pg (25-35); MEAN CORPUSCULAR HGB CONC 34 g/dL (31-37); MEAN CORPUSCULAR VOLUME 88 fL (79-100); MONO % 12 % (0-9); NEUT # 5.3 x10^3uL (1.8-7.7); NEUT % 61 % (31-73); PLATELET COUNT 271 x10^3/uL (140-400); RED BLOOD COUNT 4.17 x10^6/uL (3.50-5.40); RED CELL DISTRIBUTION WIDTH 14.5 % (11.5-14.5); WHITE BLOOD COUNT 8.7 x10^3/uL (4.0-11.0)
[2018-01-22 11:34] LABS: ALBUMIN 2.3 g/dL (3.4-5.0); ALBUMIN/GLOBULIN RATIO 0.6 (1.0-1.7); CREATININE 1.2 mg/dL (0.6-1.0); GFR 42.3; MAGNESIUM 1.8 mg/dL (1.8-2.4); POTASSIUM 4.1 mmol/L (3.5-5.1); TOTAL BILIRUBIN 0.4 mg/dL (0.2-1.0); TOTAL PROTEIN 5.9 g/dL (6.4-8.2)
--- NOTE | 2018-01-22 12:08 | PDOC ---
CONNIE GARCIA TEST AND TURN UP TECHNICIAN 01/22/18 1208: CARDIO Progress Notes Date and Time Date of Service 01/22/2018 Time of Evaluation 1130 Subjective Subjective: No Chest Pain, No shortness of breath, No Palpitations Vitals Vitals Vital Signs Date Time Temp Pulse Resp B/P (MAP) Pulse Ox O2 Delivery O2 Flow Rate FiO2 01/22/18 11:11 98.0 77 20 131/52 (78) 96 Room Air 98.0 Weight Weight [ ] Input and Output Intake and Output Intake and Output 01/22/18 07:00 Intake Total 700 ml Output Total 1300 ml Balance -600 ml Intake Oral 700 ml Output Urine Total 1300 ml Laboratory Labs Laboratory Tests Test 01/21/18 11:57 01/21/18 16:47 01/22/18 07:18 01/22/18 10:33 Glucose (Fingerstick) 189 mg/dL (70-99) 176 mg/dL (70-99) 171 mg/dL (70-99) White Blood Count 8.7 x10^3/uL (4.0-11.0) Red Blood Count 4.17 x10^6/uL (3.50-5.40) Hemoglobin 12.5 g/dL (12.0-15.5) Hematocrit 36.9 % (36.0-47.0) Mean Corpuscular Volume 88 fL (79-100) Mean Corpuscular Hemoglobin 30 pg (25-35) Mean Corpuscular Hemoglobin Concent 34 g/dL (31-37) Red Cell Distribution Width 14.5 % (11.5-14.5) Platelet Count 271 x10^3/uL (140-400) Neutrophils (%) (Auto) 61 % (31-73) Lymphocytes (%) (Auto) 22 % (24-48) Monocytes (%) (Auto) 12 % (0-9) Eosinophils (%) (Auto) 5 % (0-3) Basophils (%) (Auto) 0 % (0-3) Neutrophils # (Auto) 5.3 x10^3uL (1.8-7.7) Lymphocytes # (Auto) 1.9 x10^3/uL (1.0-4.8) Monocytes # (Auto) 1.0 x10^3/uL (0.0-1.1) Eosinophils # (Auto) 0.5 x10^3/uL (0.0-0.7) Basophils # (Auto) 0.0 x10^3/uL (0.0-0.2) Sodium Level 130 mmol/L (136-145) Potassium Level 4.1 mmol/L (3.5-5.1) Chloride Level 97 mmol/L (98-107) Carbon Dioxide Level 28 mmol/L (21-32) Anion Gap 5 (6-14) Blood Urea Nitrogen 14 mg/dL (7-20) Creatinine 1.2 mg/dL (0.6-1.0) Estimated GFR (Cockcroft-Gault) 42.3 BUN/Creatinine Ratio 12 (6-20) Glucose Level 236 mg/dL (70-99) Calcium Level 8.0 mg/dL (8.5-10.1) Magnesium Level 1.8 mg/dL (1.8-2.4) Total Bilirubin 0.4 mg/dL (0.2-1.0) Aspartate Amino Transf (AST/SGOT) 12 U/L (15-37) Alanine Aminotransferase (ALT/SGPT) 19 U/L (14-59) Alkaline Phosphatase 62 U/L (46-116) Total Protein 5.9 g/dL (6.4-8.2) Albumin 2.3 g/dL (3.4-5.0) Albumin/Globulin Ratio 0.6 (1.0-1.7) Test 01/22/18 11:32 Glucose (Fingerstick) 211 mg/dL (70-99) Physical Exam HEENT: Neck Supple W Full Motion Chest: Symmetric LUNGS: Other (diminished bases) Heart: RRR (SR with occasional burst of SVT) Abdomen: Soft N/T Extremities: No Calf Tenderness, Other (trace LE) Neurology: alert, oriented, follow commands Assessment Assessment 1. Arrhythmia: noted prior with MAT/WAP. Continues to have asymptomatic brief bursts of SVTs. EF/WM nml. No symptoms. 2. Metabolic encephalopathy: resolved 3. DM2: per PCP 4. HLP 5. HTN: controlled. negative for orthostasis. 6. Deconditioning: mainly WC bound. No frequent falls. 7. Hx of CVA: reported in 2004. 8. BPPV 9. Hyponatremia: Na 130. Defer to PCP Recommendations 1. Has not received any ACEi but her BP has been controlled. Would prefer to continue to hole given her low Na 2. Will DC coreg and place on metoprolol for better rhythm control. 2. Continue statin and ASA 3. Outpt event monitor is a consideration but this would not be possible as pt resides in [facility]. 4. Follow up in office in 4 weeks. MAHESH JETER MD 01/22/18 1639: CARDIO Progress Notes Plan Plan Pt. seen and examined. Agree with above SHOWROOM CONSULTANT note. No new issues on tele. Supportive care. Echo WNL CONNIE GARCIA TEST AND TURN UP TECHNICIAN Jan 22, 2018 12:08 MAHESH JETER MD Jan 22, 2018 16:39
[2018-01-22] MEDS: CITALOPRAM 10 MG TABLET. PO SCH (13:16)
[2018-01-22] MEDS: MULTIVITAMIN with MINERAL TABLET. PO SCH (13:16)
[2018-01-22] MEDS: FLUTICASONE 50MCG/NASAL SPRAY 16GM BOTTLE. NS SCH (13:17)
[2018-01-22] MEDS: DICLOFENAC SODIUM 1% TOPICAL GEL 100GM TUBE. TP SCH ×3 (13:18→20:41)
[2018-01-22] MEDS: OXYBUTYNIN CHLORIDE 5 MG TABLET PO SCH ×2 (14:55→20:40)
--- NOTE | 2018-01-22 15:40 | PDOC ---
PROGRESS NOTES Assessment Assessment Slurred speech and word finding difficulties for 1 week before admission. Metabolic encephalopathy. Hyperglycemia. DM Generalized weakness. Cerebral volume loss. 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 Over weight. No evidence of acute CVA this time. RECOMMENDATIONS/PLAN: Treat medical diseases. Control hyperglycemia. OT/PT. Discussed with her daughter and son-in-law at bedside on 01/22/18. Brain MRI performed and no evidence of CVA this time. EEG: Borderline study. HISTORY OF THE PRESENT ILLNESS: This 87 -year-old female patient prison resident was brought by EMS to the ER of [facility] for evaluation of slurred speech, had trouble finding the right words to say that been going on for more than a week. Patient's family said they have trouble understanding what she was trying to say. Patient denies any headache, no cough, no fever, no chest pain, no abdominal pain. Patient can move all her extremities. She is DNR. PAST MEDICAL HISTORY: Please see above. PAST SURGERY HISTORY: Hip Replacement, HERNIA, LEFT HIP ALLERGY: Reviewed. MEDICATIONS: Refer to [facility] FAMILY HISTORY: H Non contributory. SOCIAL HISTORY: Lives in prison. Denies smoking, drinking, and illicit drug use. REVIEW OF SYSTEMS: Constitutional: No malnutrition, weight loss, cachexia. Head: No traumatic brain or head injury. Skin: No edema, or rash. Ear: No infection. Eyes: No vision loss or color blindness. Nose: No bleeding or purulent discharges. Hearing: Hearing decrease. Neck: No injury. Breast: No history of cancer, masses,or discharges. Cardiac: No [place], arrhythmia. Pulmonary: No COPD. GI: No GI ulcer, GI bleeding. Urinary/genital: UTI. Endocrinologic: Diabetes Mellitus. Skeletomuscular: Generalized weakness. Neurological: see HP. Psychiatric: Denies drug use/abuse. Otherwise, not [id number] review of systems. PHYSICAL EXAMINATION: General appearance is in no acute distress. HEENT: Normocephalic and nontraumatic. Eyes, nose, ears, and throat are unremarkable. Neck is supple. No lymphadenopathy. No crepitus. Cardiovascular: S1, S2, regular rate and rhythm. Pulmonary: Clear to auscultation bilaterally. Abdomen: Bowel sounds are positive. Abdomen is soft, nontender, and nondistended. Extremities: No rash, lesions, or edema. No restriction of range of motion Wounds in left back. NEUROLOGICAL EXAMINATION: Awake. Not fully oriented to time, but knew place and person. PERRL. EOMI. CN: no focal findings. Muscle tone: within normal. Muscle strength: 4+ DTR: 1-2 Plantar reflex: Neutral response bilaterally Gait: not examined in bed. Sensory exam: no abnormal findings. No cerebellar signs elicited. F-T-N test fine. Objective Objective Vital Signs Date Time Temp Pulse Resp B/P (MAP) Pulse Ox O2 Delivery O2 Flow Rate FiO2 01/22/18 15:06 98.1 69 20 141/55 (83) 93 Room Air 98.1 Intake and Output 01/22/18 07:00 Intake Total 700 ml Output Total 1300 ml Balance -600 ml Intake Oral 700 ml Output Urine Total 1300 ml Vitals Signs Vitals VS - Last 72 Hours, by Label Date Time Temp Pulse Resp B/P (MAP) Pulse Ox O2 Delivery O2 Flow Rate FiO2 01/22/18 15:06 98.1 69 20 141/55 (83) 93 Room Air 98.1 01/22/18 12:06 70 130/63 (85) 01/22/18 12:05 67 125/49 (74) 01/22/18 11:11 98.0 77 20 131/52 (78) 96 Room Air 98.0 01/22/18 09:08 74 110/50 01/22/18 08:00 Room Air 01/22/18 07:39 98.0 74 20 110/50 (70) 93 Room Air 98.0 01/22/18 03:38 97.9 79 16 115/61 (79) 93 Room Air 97.9 01/21/18 23:23 97.9 83 16 123/45 (71) 95 Room Air 97.9 01/21/18 20:15 Room Air 01/21/18 19:58 98.2 77 16 135/48 (77) 91 Room Air 98.2 01/21/18 17:45 80 136/59 01/21/18 15:53 80 136/59 (84) 01/21/18 15:52 77 161/68 (99) 01/21/18 15:43 97.9 77 20 127/62 (83) 95 Room Air 97.9 01/21/18 11:25 98.1 75 20 153/78 (103) 94 Room Air 98.1 01/21/18 08:00 Room Air 01/21/18 07:34 97.9 78 20 149/69 (95) 96 Room Air 97.9 Laboratory Laboratory Laboratory Tests Test 01/21/18 16:47 01/22/18 07:18 01/22/18 10:33 01/22/18 11:32 Glucose (Fingerstick) 176 mg/dL (70-99) 171 mg/dL (70-99) 211 mg/dL (70-99) White Blood Count 8.7 x10^3/uL (4.0-11.0) Red Blood Count 4.17 x10^6/uL (3.50-5.40) Hemoglobin 12.5 g/dL (12.0-15.5) Hematocrit 36.9 % (36.0-47.0) Mean Corpuscular Volume 88 fL (79-100) Mean Corpuscular Hemoglobin 30 pg (25-35) Mean Corpuscular Hemoglobin Concent 34 g/dL (31-37) Red Cell Distribution Width 14.5 % (11.5-14.5) Platelet Count 271 x10^3/uL (140-400) Neutrophils (%) (Auto) 61 % (31-73) Lymphocytes (%) (Auto) 22 % (24-48) Monocytes (%) (Auto) 12 % (0-9) Eosinophils (%) (Auto) 5 % (0-3) Basophils (%) (Auto) 0 % (0-3) Neutrophils # (Auto) 5.3 x10^3uL (1.8-7.7) Lymphocytes # (Auto) 1.9 x10^3/uL (1.0-4.8) Monocytes # (Auto) 1.0 x10^3/uL (0.0-1.1) Eosinophils # (Auto) 0.5 x10^3/uL (0.0-0.7) Basophils # (Auto) 0.0 x10^3/uL (0.0-0.2) Sodium Level 130 mmol/L (136-145) Potassium Level 4.1 mmol/L (3.5-5.1) Chloride Level 97 mmol/L (98-107) Carbon Dioxide Level 28 mmol/L (21-32) Anion Gap 5 (6-14) Blood Urea Nitrogen 14 mg/dL (7-20) Creatinine 1.2 mg/dL (0.6-1.0) Estimated GFR (Cockcroft-Gault) 42.3 BUN/Creatinine Ratio 12 (6-20) Glucose Level 236 mg/dL (70-99) Calcium Level 8.0 mg/dL (8.5-10.1) Magnesium Level 1.8 mg/dL (1.8-2.4) Total Bilirubin 0.4 mg/dL (0.2-1.0) Aspartate Amino Transf (AST/SGOT) 12 U/L (15-37) Alanine Aminotransferase (ALT/SGPT) 19 U/L (14-59) Alkaline Phosphatase 62 U/L (46-116) Total Protein 5.9 g/dL (6.4-8.2) Albumin 2.3 g/dL (3.4-5.0) Albumin/Globulin Ratio 0.6 (1.0-1.7) Medication Medications Current Medications Acetaminophen (Tylenol) 650 mg PRN Q4HRS PRN PO MILD PAIN / TEMP; Start at 10:45 Aspirin (Children'S Aspirin) 81 mg DAILYWBKFT PO Last administered on at 09:08; Start 01/22/18 at 08:00 Carvedilol (Coreg) 6.25 mg BIDWMEALS PO Last administered on 01/22/18at 09:08; Start 01/21/18 at 17:00; Stop 01/22/18 at 12:10; Status DC Carvedilol (Coreg) 6.25 mg BIDWMEALS PO ; Start 01/21/18 at 17:00; Status UNV Cetirizine HCl (ZyrTEC) 10 mg DAILY PO Last administered on 01/22/18at 11:30; Start 01/22/18 at 11:30 Citalopram Hydrobromide (CeleXA) 30 mg DAILY PO Last administered on 01/22/18at 13:16; Start 01/22/18 at 11:30 Diclofenac Sodium (Voltaren) 2 herve QID TP Last administered on 01/22/18at 13:18 ; Start 01/22/18 at 13:00 Fluticasone Propionate (Flonase) 2 spray DAILY NS Last administered on at 13:17; Start 01/22/18 at 11:30 Insulin Glargine (Lantus) 22 units QHS SQ ; Start 01/22/18 at 21:00 Lisinopril (Prinivil) 5 mg DAILY PO ; Start 01/23/18 at 09:00 Lisinopril (Prinivil) 10 mg DAILY PO ; Start 01/22/18 at 11:30; Stop 01/22/18 at 12:08; Status DC Metoprolol Tartrate (Lopressor) 50 mg BID PO ; Start 01/22/18 at 21:00 Montelukast Sodium (Singulair) 10 mg QHS PO ; Start 01/22/18 at 21:00 Multivitamins (Thera M Plus) 1 tab DAILY PO Last administered on 01/22/18at 13: 16; Start 01/22/18 at 11:30 Oxybutynin Chloride (Ditropan) 5 mg [id number] PO Last administered on 01/22/18at 14 :55; Start 01/22/18 at 14:00 Simvastatin (Zocor) 10 mg QHS PO Last administered on 01/21/18at 20:36; Start at 21:00 Comment Review of Relevant I have reviewed the following items tera (where applicable) has been applied. VERONICA LEAL MD Jan 22, 2018 15:40
[2018-01-22] MEDS: SIMVASTATIN 10 MG TABLET PO SCH (20:40)
[2018-01-22] MEDS: METOPROLOL TART IMMED RELEASE 50 MG TABLET. PO SCH (20:40)
[2018-01-22] MEDS: MONTELUKAST SODIUM 10 MG TABLET. PO SCH (20:40)
[2018-01-22] MEDS: INSULIN GLARGINE 300 UNITS/3 ML INSULN.PEN. SQ SCH (20:44)
[2018-01-23 03:20] VITALS: BP 93/34
[2018-01-23 07:48] VITALS: BP 146/51
[2018-01-23] MEDS: DICLOFENAC SODIUM 1% TOPICAL GEL 100GM TUBE. TP SCH ×4 (09:00→21:25)
[2018-01-23] MEDS: FLUTICASONE 50MCG/NASAL SPRAY 16GM BOTTLE. NS SCH (09:00)
[2018-01-23] MEDS: ASPIRIN CHEWABLE 81 MG TABLET. PO SCH (09:11)
[2018-01-23] MEDS: CETIRIZINE HCL 10 MG TABLET. PO SCH (09:11)
[2018-01-23] MEDS: OXYBUTYNIN CHLORIDE 5 MG TABLET PO SCH ×3 (09:11→21:24)
[2018-01-23] MEDS: CITALOPRAM 10 MG TABLET. PO SCH (09:12)
[2018-01-23] MEDS: METOPROLOL TART IMMED RELEASE 50 MG TABLET. PO SCH ×2 (09:12→21:25)
[2018-01-23] MEDS: MULTIVITAMIN with MINERAL TABLET. PO SCH (09:12)
[2018-01-23] MEDS: LISINOPRIL 5 MG TABLET. PO SCH (09:13)
[2018-01-23 11:13] VITALS: BP 126/53
[2018-01-23 15:20] VITALS: BP 109/42
[2018-01-23 19:45] VITALS: BP 117/32
[2018-01-23] MEDS: SIMVASTATIN 10 MG TABLET PO SCH (21:24)
[2018-01-23] MEDS: MONTELUKAST SODIUM 10 MG TABLET. PO SCH (21:24)
[2018-01-23] MEDS: INSULIN GLARGINE 300 UNITS/3 ML INSULN.PEN. SQ SCH (21:30)
[2018-01-23 23:31] VITALS: BP 124/40
--- NOTE | 2018-01-24 00:29 | PN ---
DATE: 01/23/2018 LOCATION: She is in room 656. SUBJECTIVE: The patient is awake and alert. Her daughter, son-in-law, grandson and great grandson are in attendance, spoke with daughter and grandson in quite depth and they notice more confusion while she has been here in the hospital, which I think after talking for a while is probably related to some early dementia and unfamiliar surroundings. They feel like the speech has improved and upon talking with her it definitely has improved, although there is still an occasional word finding error. OBJECTIVE: VITAL SIGNS: Stable. She is afebrile. Sugars were decent. CHEST: Clear. HEART: Regular. ABDOMEN: Benign. NEUROLOGICAL: Nonfocal. Wound care is working on her macerated buttocks and coccyx area, probably due to urine. IMPRESSION: 1. Speech difficulty with word finding errors, probably transient ischemic attack related. 2. Diabetes. 3. Irritation of the skin of the coccyx and buttocks. PLAN: I believe Neurology has probably finished with workup. Family's understanding is they have to be here until Thursday for wound care followup, which I am not sure is really necessary. I would like to see what Neurology says, if they have no further plans I do not see any reason why she cannot [facility]. CALLI AGUILAR MD DR: KEM/victor hugo JOB#: [id number] / [id number]
[2018-01-24 03:34] VITALS: BP 113/55
[2018-01-24 07:00] VITALS: BP 137/52
[2018-01-24] MEDS: ASPIRIN CHEWABLE 81 MG TABLET. PO SCH (08:41)
[2018-01-24] MEDS: CITALOPRAM 10 MG TABLET. PO SCH (08:41)
[2018-01-24] MEDS: OXYBUTYNIN CHLORIDE 5 MG TABLET PO SCH ×3 (08:41→22:08)
[2018-01-24] MEDS: LISINOPRIL 5 MG TABLET. PO SCH (08:42)
[2018-01-24] MEDS: CETIRIZINE HCL 10 MG TABLET. PO SCH (08:43)
[2018-01-24] MEDS: MULTIVITAMIN with MINERAL TABLET. PO SCH (08:43)
[2018-01-24] MEDS: METOPROLOL TART IMMED RELEASE 50 MG TABLET. PO SCH ×2 (08:43→22:07)
[2018-01-24] MEDS: DICLOFENAC SODIUM 1% TOPICAL GEL 100GM TUBE. TP SCH ×4 (08:43→22:10)
[2018-01-24] MEDS: FLUTICASONE 50MCG/NASAL SPRAY 16GM BOTTLE. NS SCH (08:49)
[2018-01-24 10:54] VITALS: BP 121/42
[2018-01-24 15:00] VITALS: BP 133/43
[2018-01-24 19:20] VITALS: BP 110/39
--- NOTE | 2018-01-24 19:38 | PN ---
DATE: 01/24/2018 LOCATION: She is in room 656. SUBJECTIVE: The patient is awake, alert. Another daughter and son-in-law are present this morning. They are noting evening type confusion and have been noticing memory difficulties in the [place] [facility] for the last months to a year or so prior to this admission. Workup today was discussed with them in detail. OBJECTIVE: VITAL SIGNS: Stable. She is afebrile. Sugars have been good. CHEST: Clear. HEART: Regular. ABDOMEN: Benign. EXTREMITIES: She does have occasional word finding errors in speech, but is stable from yesterday. NEUROLOGIC: Nonfocal. ASSESSMENT: 1. Speech finding difficulties with word finding errors, probably transient ischemic attack related. 2. Diabetes. 3. Irritation of skin of coccyx and buttocks, which the family is very concerned about. PLAN: I believe she is ready for dismissal back to the [place] [facility]. She will be on aspirin as the only change in medication. Plans for discharge will be tomorrow after wound care has seen her in followup. It would seem that the problem with her wound is more due to maceration from being wet at the [facility] and I have discussed with family the fact that a Ramos catheter would solve this, would put her at high risk for urinary tract infections and sick from that regard and that we would probably have to find another way to do this upon discharge. CALLI AGUILAR MD DR: KEM/victor hugo JOB#: [id number] / [id number]
[2018-01-24] MEDS: MONTELUKAST SODIUM 10 MG TABLET. PO SCH (22:08)
[2018-01-24] MEDS: SIMVASTATIN 10 MG TABLET PO SCH (22:08)
[2018-01-24] MEDS: INSULIN GLARGINE 300 UNITS/3 ML INSULN.PEN. SQ SCH (22:13)
[2018-01-24 23:09] VITALS: BP 114/40
[2018-01-25 03:31] VITALS: BP 110/69
[2018-01-25 07:00] VITALS: BP 148/44
--- NOTE | 2018-01-25 08:43 | PDOC ---
GENERAL General: see discharge summary. VITAL SIGNS Vital Signs: Vital Signs Date Time Temp Pulse Resp B/P (MAP) Pulse Ox O2 Delivery O2 Flow Rate FiO2 01/25/18 07:00 97.5 56 20 148/44 (78) 94 Room Air 97.5 I & O I & O Intake and Output 01/25/18 07:00 Intake Total 540 ml Output Total 1050 ml Balance -510 ml Intake Oral 540 ml Output Urine Total 1050 ml ALLERGIES Allergies: Allergies Coded Allergies Type Severity Reaction Last Updated Verified Penicillins Allergy Intermediate HIVES 01/19/18 Yes MEDS Medications: Current Medications Medications (Trade) Dose Ordered Sig/Johnny Start Time Stop Time Status Last Admin Dose Admin Acetaminophen (Tylenol) 650 mg PRN Q4HRS PRN 01/22/18 10:45 01/23/18 14:21 650 MG Aspirin (Children'S Aspirin) 81 mg DAILYWBKFT 01/22/18 08:00 01/24/18 08:41 81 MG Carvedilol (Coreg) 6.25 mg BIDWMEALS 01/21/18 17:00 UNV Cetirizine HCl (ZyrTEC) 10 mg DAILY 01/22/18 11:30 01/24/18 08:43 10 MG Citalopram Hydrobromide (CeleXA) 30 mg DAILY 01/22/18 11:30 01/24/18 08:41 30 MG Diclofenac Sodium (Voltaren) 2 herve QID 01/22/18 13:00 01/24/18 22:10 2 HERVE Fluticasone Propionate (Flonase) 2 spray DAILY 01/22/18 11:30 01/22/18 13:17 2 SPRAY Insulin Glargine (Lantus) 22 units QHS 01/22/18 21:00 01/24/18 22:13 22 UNITS Lisinopril (Prinivil) 5 mg DAILY 01/23/18 09:00 01/24/18 08:42 5 MG Magnesium Sulfate 50 ml @ 25 mls/hr 1X ONCE 01/21/18 13:00 01/21/18 14:59 DC 01/21/18 12:17 25 MLS/HR Metoprolol Tartrate (Lopressor) 50 mg BID 01/22/18 21:00 01/24/18 22:07 50 MG Montelukast Sodium (Singulair) 10 mg QHS 01/22/18 21:00 01/24/18 22:08 10 MG Multivitamins (Thera M Plus) 1 tab DAILY 01/22/18 11:30 01/24/18 08:43 1 TAB Ondansetron HCl (Zofran) 4 mg PRN Q8HRS PRN 01/19/18 15:00 01/20/18 14:59 DC Oxybutynin Chloride (Ditropan) 5 mg [id number] 01/22/18 14:00 01/24/18 22:08 5 MG Simvastatin (Zocor) 10 mg QHS 01/21/18 21:00 01/24/18 22:08 10 MG Sodium Chloride 1,000 ml @ 100 mls/hr Q10H 01/19/18 14:54 01/20/18 14:53 DC 01/20/18 10:54 100 MLS/HR LAB Lab: Laboratory Tests Test 01/24/18 11:52 01/24/18 17:11 01/25/18 07:15 Glucose (Fingerstick) 166 mg/dL (70-99) 159 mg/dL (70-99) 156 mg/dL (70-99) CALLI AGUILAR MD Jan 25, 2018 08:43
[2018-01-25] MEDS: ASPIRIN CHEWABLE 81 MG TABLET. PO SCH (09:14)
[2018-01-25] MEDS: MULTIVITAMIN with MINERAL TABLET. PO SCH (09:15)
[2018-01-25] MEDS: CITALOPRAM 10 MG TABLET. PO SCH (09:15)
[2018-01-25] MEDS: CETIRIZINE HCL 10 MG TABLET. PO SCH (09:15)
[2018-01-25] MEDS: OXYBUTYNIN CHLORIDE 5 MG TABLET PO SCH ×2 (09:15→13:29)
[2018-01-25] MEDS: LISINOPRIL 5 MG TABLET. PO SCH (09:15)
[2018-01-25] MEDS: METOPROLOL TART IMMED RELEASE 50 MG TABLET. PO SCH (09:16)
[2018-01-25] MEDS: FLUTICASONE 50MCG/NASAL SPRAY 16GM BOTTLE. NS SCH (09:16)
[2018-01-25] MEDS: DICLOFENAC SODIUM 1% TOPICAL GEL 100GM TUBE. TP SCH ×2 (09:17→13:29)
--- NOTE | 2018-01-25 09:32 | DS ---
DATE OF DISCHARGE: 01/25/2018 PRIMARY DIAGNOSES: Transient ischemic attack with expressive aphasia. ADDITIONAL DIAGNOSES: Encephalopathy, improved. Diabetes, excoriation of the buttocks and sacral area from moisture. Early dementia. CHIEF COMPLAINT AND HISTORY OF PRESENT ILLNESS: This 87-year-old white female admitted with encephalopathy and word finding errors, most consistent with aphasia that was intermittent. SUMMARY OF STAY: The patient was admitted, workup included CT and MRI of the head, both of which did not show any acute events. Neurology followed along. They did check TSH, B12 levels that were likewise unremarkable. Sugars were good throughout the stay with her diabetes. She still had some problems. Her EEG during the stay was felt to be a borderline study by Neurology. Their suggestions were that of an aspirin a day. It became apparent that she has some memory difficulties with some sundowning while she was here. Long discussions with family on a couple of occasions led to the findings that they had noticed over the last year some memory difficulties and elected to start her on Namzaric as outpatient at the time of discharge along with the aspirin and her regular medicines. DISPOSITION: [facility] Regular diet, activity as tolerated. We will follow her there. DISCHARGE MEDICATIONS: Listed on the med rec and have been addressed. CALLI AGUILAR MD DR: KEM/victor hugo JOB#: [id number] / [id number]
[2018-01-25 11:00] VITALS: BP 139/51
--- NOTE | 2018-01-25 13:51 | PDOC ---
PROGRESS NOTES Assessment Assessment Slurred speech and word finding difficulties for 1 week before admission. Metabolic encephalopathy. Hyperglycemia. DM Generalized weakness. Cerebral volume loss. 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 Over weight. No evidence of acute CVA this time. RECOMMENDATIONS/PLAN: Treat medical diseases. Control hyperglycemia. OT/PT. FU with PCP. Discussed with her daughters at bedside on 01/25/18. Brain MRI performed and no evidence of CVA this time. EEG: Borderline study. HISTORY OF THE PRESENT ILLNESS: This 87 -year-old female patient long term resident was brought by EMS to the ER of [facility] for evaluation of slurred speech, had trouble finding the right words to say that been going on for more than a week. Patient's family said they have trouble understanding what she was trying to say. Patient denies any headache, no cough, no fever, no chest pain, no abdominal pain. Patient can move all her extremities. She is DNR. PAST MEDICAL HISTORY: Please see above. PAST SURGERY HISTORY: Hip Replacement, HERNIA, LEFT HIP ALLERGY: Reviewed. MEDICATIONS: Refer to [facility] FAMILY HISTORY: H Non contributory. SOCIAL HISTORY: Lives in long term. Denies smoking, drinking, and illicit drug use. REVIEW OF SYSTEMS: Constitutional: No malnutrition, weight loss, cachexia. Head: No traumatic brain or head injury. Skin: No edema, or rash. Ear: No infection. Eyes: No vision loss or color blindness. Nose: No bleeding or purulent discharges. Hearing: Hearing decrease. Neck: No injury. Breast: No history of cancer, masses,or discharges. Cardiac: No [place], arrhythmia. Pulmonary: No COPD. GI: No GI ulcer, GI bleeding. Urinary/genital: UTI. Endocrinologic: Diabetes Mellitus. Skeletomuscular: Generalized weakness. Neurological: see HP. Psychiatric: Denies drug use/abuse. Otherwise, not [id number] review of systems. PHYSICAL EXAMINATION: General appearance is in no acute distress. HEENT: Normocephalic and nontraumatic. Eyes, nose, ears, and throat are unremarkable. Neck is supple. No lymphadenopathy. No crepitus. Cardiovascular: S1, S2, regular rate and rhythm. Pulmonary: Clear to auscultation bilaterally. Abdomen: Bowel sounds are positive. Abdomen is soft, nontender, and nondistended. Extremities: No rash, lesions, or edema. No restriction of range of motion Wounds in left back. NEUROLOGICAL EXAMINATION: Awake. Not fully oriented to time, but knew place and person. PERRL. EOMI. CN: no focal findings. Muscle tone: within normal. Muscle strength: 4+ DTR: 1-2 Plantar reflex: Neutral response bilaterally Gait: not examined in bed. Sensory exam: no abnormal findings. No cerebellar signs elicited. F-T-N test fine. Objective Objective Vital Signs Date Time Temp Pulse Resp B/P (MAP) Pulse Ox O2 Delivery O2 Flow Rate FiO2 01/25/18 11:00 97.7 58 20 139/51 (80) 94 Room Air 97.7 Intake and Output 01/25/18 07:00 Intake Total 540 ml Output Total 1050 ml Balance -510 ml Intake Oral 540 ml Output Urine Total 1050 ml Vitals Signs Vitals VS - Last 72 Hours, by Label Date Time Temp Pulse Resp B/P (MAP) Pulse Ox O2 Delivery O2 Flow Rate FiO2 01/25/18 11:00 97.7 58 20 139/51 (80) 94 Room Air 97.7 01/25/18 09:16 56 148/44 01/25/18 09:15 56 148/44 01/25/18 08:00 Room Air 01/25/18 07:00 97.5 56 20 148/44 (78) 94 Room Air 97.5 01/25/18 03:31 98.4 93 20 110/69 (83) 98 Room Air 98.4 01/24/18 23:09 97.5 78 18 114/40 (64) 91 Room Air 97.5 01/24/18 22:07 83 110/39 01/24/18 20:00 Room Air 01/24/18 19:20 99.5 83 18 110/39 (62) 90 Room Air 99.5 01/24/18 15:00 97.5 61 24 133/43 (73) 94 Room Air 97.5 01/24/18 10:54 96.8 52 20 121/42 (68) 94 Room Air 96.8 01/24/18 08:43 62 137/52 01/24/18 08:42 62 137/52 01/24/18 08:00 Room Air 01/24/18 07:00 96.1 62 16 137/52 (80) 96 Room Air 96.1 Laboratory Laboratory Laboratory Tests Test 01/24/18 17:11 01/25/18 07:15 01/25/18 11:43 Glucose (Fingerstick) 159 mg/dL (70-99) 156 mg/dL (70-99) 164 mg/dL (70-99) Comment Review of Relevant I have reviewed the following items tera (where applicable) has been applied. VERONICA LEAL MD Jan 25, 2018 13:50
[2018-01-25 15:00] VITALS: BP 140/50
== END 2018-01-25 16:30 | DRG 69 ==
LOC: ER 11:29 → ED HOLD 14:10 → 6 SOUTH 18:30
PROVIDERS: ADMIT Family Medicine; ATTEND Family Medicine
DX: G45.9 Transient cerebral ischemic attack, unspecified (principal); G93.41 Metabolic encephalopathy; E43 Unspecified severe protein-calorie malnutrition; E87.1 Hypo-osmolality and hyponatremia; R47.01 Aphasia; F05 Delirium due to known physiological condition; I47.1 Supraventricular tachycardia; Z66 Do not resuscitate; M19.90 Unspecified osteoarthritis, unspecified site; F41.9 Anxiety disorder, unspecified; E11.65 Type 2 diabetes mellitus with hyperglycemia; I10 Essential (primary) hypertension; E78.5 Hyperlipidemia, unspecified; H81.10 Benign paroxysmal vertigo, unspecified ear; E66.3 Overweight; F03.90 Unspecified dementia, unspecified severity, without behavioral disturbance, psychotic disturbance, mood disturbance, and anxiety; Z96.642 Presence of left artificial hip joint; S30.810A Abrasion of lower back and pelvis, initial encounter; X58.XXXA Exposure to other specified factors, initial encounter; Y93.89 Activity, other specified; Y92.89 Other specified places as the place of occurrence of the external cause; Y99.8 Other external cause status; Z68.28 Body mass index [BMI] 28.0-28.9, adult; Z88.0 Allergy status to penicillin; Z99.3 Dependence on wheelchair; Z79.4 Long term (current) use of insulin; Z98.49 Cataract extraction status, unspecified eye; Z86.73 Personal history of transient ischemic attack (TIA), and cerebral infarction without residual deficits
CPT/HCPCS: 36415; 70450; 70551; 71045; 80048; 80053; 80061; 81001; 82607; 82962; 83735; 83880; 84443; 84484; 85025; 85610; 85730; 87641; 93005; 93306; 95816; 96365; 96366; J1815; J3475; J7030; 99285-25